=== PATIENT | male | born 1970 | race Caucasian/White ===

== ENCOUNTER 2019-07-29 19:02 | Outpatient (REF) | payer BC, SELFPAY ==
[2019-07-29 18:47] LABS: HCT 46.7 % (40.0-50.0); HGB 16.3 g/dL (13.5-17.5); Mean Corp. HGB Concentration 34.9 g/dL (32.0-36.0); Mean Corpuscular Hemoglobin 30.5 pg (27.0-33.0); Mean Corpuscular Volume 87.3 fL (80-95); Mean Platelet Volume 9.9 fL (8.0-11.0); Platelet Count 270 x1000/uL (130-400); RBC 5.35 m/cumm (4.50-6.00); RBC Distribution Width 12.4 % (11.8-14.1); White Blood Cell Count 5.91 k/cumm (4.4-10.8)
[2019-07-29 19:00] LABS: ALT 35 U/L (16-63); AST 21 U/L (15-37); Albumin 4.6 g/dL (3.4-5.0); Alkaline Phosphatase 61 U/L (46-116); Anion Gap 11.6 mmol/L (3-11); BUN 13 mg/dL (7-18); Bilirubin, Total 0.5 mg/dL (0.2-1.0); CO2 25.4 mmol/L (21.0-32.0); CREATININE 0.71 mg/dL (0.70-1.30); Chloride 105 mmol/L (98-107); Glucose 92 mg/dL (70-100); Hemoglobin A1C 5.3 % (4.5-6.2); Potassium 4.3 mmol/L (3.5-5.1); Sodium 142 mmol/L (136-145); Total Protein 7.5 g/dL (6.4-8.2)
[2019-07-29 19:42] LABS: Calculated LDL 141 mg/dL; Cholesterol 211 mg/dL (50-200); HDL Cholesterol 46 mg/dL (40-60); Triglyceride 122 mg/dL (30-150)
== END 2019-07-29 19:22 ==
LOC: NCHCN 19:02
PROVIDERS: PCP Family Medicine; Visit Provider Family Medicine
DX: R10.32 Left lower quadrant pain (principal); E78.6 Lipoprotein deficiency; E66.9 Obesity, unspecified
CPT/HCPCS: 80053; 80061; 85027; 83036

== ENCOUNTER 2019-07-30 07:46 | Outpatient (CLI) | payer BC, SELFPAY ==
[2019-07-30] MEDS: Omnipaque 350 MG/ML 100 ML BTL IJ (10:42)
[2019-07-30] MEDS: Normal Saline Flush 10 ML SYR IVP (10:46)
--- NOTE | 2019-07-30 10:48 | DI.CT_ITS ---
EXAM: CT ABDOMEN PELVIS W CLINICAL HISTORY: LLQ ABD PAIN, R10.32,H/O KIDNEY STONES, ? DIVERTICULITIS TECHNIQUE: Post IV and oral contrast COMPARISON: RENAL COLIC WO CONTRAST from 09/04/2011 FINDINGS: The lung bases are clear. The liver, gallbladder, spleen, pancreas and adrenals are unremarkable. The right kidney shows 2 cysts near the upper pole. There is a 5 millimeter nonobstructing stone in the mid right kidney. The left kidney shows a 9 millimeter stone near the lower pole. There are 2 a djacent 5 millimeter stones in the mid left kidney and an additional 3 millimeter stone posteriorly i n the upper to mid left kidney. No hydronephrosis, ureteral or bladder calculi are seen. There is m ild enlargement of the prostate which shows calcifications. There is impression upon the base of the bladder and mild diffuse bladder wall thickening. No bladder mass is seen. Contrast is seen in the small and large bowel. There is a normal quantity of stool. The descending and rectosigmoid colon are nearly free of stool. There are a few small scattered diverticula but no evidence of diverticuli tis. There is no bowel wall thickening. The appendix appears normal. The small bowel is unremarkab le. The aorta is normal in diameter. There are no suspicious bony abnormalities. IMPRESSION: Bilateral nonobstructing renal calculi and bilateral simple renal cysts. Enlarged prostate and mild diffuse bladder wall thickening.
== END 2019-07-30 08:06 ==
PROVIDERS: PCP Family Medicine; Visit Provider Family Medicine
DX: R10.32 Left lower quadrant pain (principal); N20.0 Calculus of kidney; N28.1 Cyst of kidney, acquired; N40.0 Benign prostatic hyperplasia without lower urinary tract symptoms; N32.89 Other specified disorders of bladder
CPT/HCPCS: 74177; J3490

== ENCOUNTER 2019-08-22 15:59 | Outpatient (CLI) | payer BC, SELFPAY ==
[2019-08-23 15:16] LABS: PSA, Screening 0.6 ng/mL (0.0-2.5)
== END 2019-08-22 16:19 ==
PROVIDERS: PCP Family Medicine; Visit Provider Nurse Practitioner Gerontology
DX: N40.1 Benign prostatic hyperplasia with lower urinary tract symptoms (principal); Z12.5 Encounter for screening for malignant neoplasm of prostate
CPT/HCPCS: 36415; 84153

== ENCOUNTER 2019-08-23 11:49 | Outpatient (REF) | payer BC, SELFPAY | END 2019-08-23 12:09 | LOC: NCHCN 11:49 | PROVIDERS: PCP Family Medicine; Visit Provider Nurse Practitioner Family | DX: Z00.00 Encounter for general adult medical examination without abnormal findings (principal); L08.9 Local infection of the skin and subcutaneous tissue, unspecified | CPT/HCPCS: 87070; 87205 ==

== ENCOUNTER 2019-10-16 08:26 | Outpatient (CLI) | payer BC, SELFPAY ==
--- NOTE | 2019-10-16 13:00 | DI.RAD_ITS ---
EXAM: XR SHOULDER LT COMPLETE 2+V CLINICAL HISTORY: ROTATOR CUFF TEAR, M75.100, IMPINGEMENT SYNDROME, M75.42. TECHNIQUE: 2D digital imaging was performed. COMPARISON: LEFT SHOULDER COMPLETE from 09/20/2012 FINDINGS: BONES: No acute fracture is present. No bony destructive lesion is seen. JOINTS: No dislocation present. SOFT TISSUE: Normal. IMPRESSION: Unremarkable radiographs of the left shoulder.
== END 2019-10-16 08:46 ==
PROVIDERS: PCP Family Medicine; Visit Provider Orthopaedic Surgery
DX: M25.512 Pain in left shoulder (principal); M75.42 Impingement syndrome of left shoulder
CPT/HCPCS: 73030

== ENCOUNTER 2019-11-04 07:45 | Day surgery (SDC) | payer BC, SELFPAY ==
--- NOTE | 2019-11-04 06:49 | W.COLOREPORT ---
Date of service: 11/04/19 Time of Service: 08:47 Colonoscopy Report Date of procedure: 11/04/19 Pre-op diagnosis general: Colon Cnacer Screening and diarrhea Post-op diagnosis procedure note: other (mild diverticulosis and polyps) Procedure: Colonoscopy with polypectomy by cold forceps Surgeon: Massiel Daniels Anesthesia proc note operative: other (General/ ASA 2/Salima Regan, ALEJANDRO) Estimated blood loss (mL): 5 Pathology: other (Transverse, sigmoid and rectal polyp) Complications: None Disposition: same day Indications: Mr. Doran is a pleasant 49-year-old gentleman who is here today for a screening colonoscopy. He has also noted some changes in bowel habits over the last year. He seems to be getting diarrhea after eating. When this first started it was infrequent but over the last 6 months it has become almost after every meal. He has not been able to find a particular food trigger. He has not had any weight loss, melena or hematochezia. He has no family history of colon cancer. He is also had some left upper quadrant pain underneath the left ribs. He has a history of kidney stones but the pain he is experiencing is different from his kidney stones. Risks, benefits and complications have been reviewed. Complications include but are not limited to bleeding, pain, perforation, missed small lesion/polyp, sore throat, aspiration and adverse reaction to the medications. Questions were entertained and answered to their satisfaction and they wished to proceed. No guarantees were given or implied. Prep: Miralax/Dulcolax Procedure Start Time: 08:47 Procedure End Time: 09:17 Retraction Time: 24 minutes Findings: 3 small polyps mild descending and sigmoid colon diverticulosis Procedure Description: After informed consent was obtained the patient was taken to the procedure room and placed in a left decubitous position. Monitors were applied and a time out was done. The patients name, date of , procedure, allergies to medications and metal in their body was reviewed. The patient was then sedated. Once sedated and comfortable a rectal exam was done. External exam was normal. Internal exam revealed a normal sphincter tone and no palpable masses. The prostate felt smooth. The scope was then introduced and retro-flexed. No internal hemorrhoids, polyps or masses were identified on retro-flexion. The scope was then advanced to the cecum without difficulty. The TI and appendiceal orifice were identified. The prep was good. The scope was then slowly retracted over 24 minutes back into the rectum. Polyps were removed with cold forceps in the trasnverse colon, sigmoid colon and rectum. There was mild diverticulosis of the descending and sigmoid colon. The scope was removed and the patient was woken up and taken back to Same day surgery in stable condition. The patient tolerated the procedure well and there were no immediate complications. Follow up: The patient should follow up in 3-5 years unless they develop changes in bowel habits or other new gastrointestinal complaints.
--- NOTE | 2019-11-04 06:52 | W.PM.DSUDISC ---
Discharge Plan Disposition Patient Disposition: HOME Condition: Good Discharge Details Reason For Visit: SCREENING Attending Provider: Massiel Daniels Primary Care Provider: Kirsty Matthew Home Meds and New Rx's Prescriptions: Continued ibuprofen [Ibuprofen Jr Strength] 100 MG tablet,chewable 600 mg PO Q4H PRN RF: 0 naproxen sodium [Aleve] 220 MG capsule 220 mg PO BID PRN PRNQty: 0 RF: 0 acetaminophen [Tylenol Extra Strength] 500 mg Tablet 1,000 mg PO Q6H PRNRF: 0 Discontinued bisacodyl [Dulcolax (bisacodyl)] 5 mg tablet,delayed release (DR/EC) 5 mg PO ONCE Qty: 4 RF: 0 polyethylene glycol 3350 17 gram powder in packet 255 g PO DAILY Qty: 15 RF: 0 Discharge Instructions Instructions: Diverticulosis (DC), Colorectal Polyps (DC) Additional Instructions: Findings: small polyps Diverticulosis Follow up: 3-5 years Please call if you develop: fevers >101.5 Nausea or Vomiting Abdominal pain that is not transient DAY SURGERY UNIT POST ENDOSCOPY INSTRUCTIONS 1. Because there will be medication in your system for the next 24 hours, you may feel a little sleepy. Your coordination will be affected. Therefore: a. Do not drive or operate dangerous equipment for 24 hours. b. Do not drink alcohol beverages for 24 hours (not even beer). c. Plan to go home and rest for the day. 2. Generally there are no restrictions on your activity after a day or so has gone by, but you may feel a bit fatigued for a few days. 3 After you arrive home you may have a light meal and return to a normal diet as you can tolerate it without feeling sick to your stomach. 4. After surgery, you may feel pain or discomfort. This should be only transient, but if it persists please contact your doctor. 5. If there are any questions regarding the findings of your procedure, please feel free to contact your doctor. 6. If you are unable to contact your doctor with a problem, contact the hospital at [phone]. 7. Continue all your regular medications unless directed otherwise. I understand the above instructions and have no questions. Signature of Patient or Responsible Adult Escort Date/Time Name of Responsible Adult Escort Signature of Nurse Date/Time Activity:: Activity as Tolerated Diet:: High Fiebr Diet Discharge Orders Discharge Orders: Discharge Order (Routine); Ordered 11/04/19 Ordered By: Massiel Daniels DS: Diagnosis Discharge Diagnosis (1) Colorectal polyp detected on colonoscopy: Status: Acute
[2019-11-04 08:20] VITALS: BP 114/80; PULSE 77; RESP 16; TEMP 36.5; O2SAT 97
[2019-11-04] MEDS: Lactated Ringers 1,000 ML 80 ML IV (08:30)
--- NOTE | 2019-11-04 09:02 | BOWEL_PTH ---
PATIENT: Awais Doran LOC: [facility] U#:[id number] AGE/SX: 49/M ROOM: RE11/04/[address]: Massiel Daniels MD : 1970 BED: DIS: 11/04/2019 SPEC #: [id number] RECD: 11/04/19 12:43 STATUS: JAQUELIN REDl #: [id number] EDDY: 11/04/19 09:[address]: Massiel Daniels DEPT: Surgical Specimen RECD BY: Demi Ascencio ENTERED: 11/04/19 12:47 SP TYPE: Bowel OTHR DR: Kirsty Matthew Tissues: 1 - BIOPSY BOWEL 2 - BIOPSY BOWEL 3 - BIOPSY BOWEL Procedures: GROSS AND MICRO LEVEL 4 Comments: [id number]
[2019-11-04 09:59] VITALS: BP 110/60; PULSE 57; RESP 16; TEMP 36.3; O2SAT 97
== END 2019-11-04 10:55 | disposition home or self-care (01) ==
LOC: SUR 07:46
PROVIDERS: PCP Family Medicine; Visit Provider Surgery
PROC: 0DJD8ZZ Inspection of Lower Intestinal Tract, Via Natural or Artificial Opening Endoscopic (ICD-10-PCS; CPT 45378; principal; 2019-11-04 09:00)
DX: Z12.11 Encounter for screening for malignant neoplasm of colon (principal); D12.3 Benign neoplasm of transverse colon; K63.89 Other specified diseases of intestine; K62.1 Rectal polyp; R19.7 Diarrhea, unspecified; K57.30 Diverticulosis of large intestine without perforation or abscess without bleeding; R10.12 Left upper quadrant pain
CPT/HCPCS: 45380; 88305; J2001; J2704

== ENCOUNTER 2020-08-24 00:21 | Outpatient (CLI) | payer BC, SELFPAY ==
--- NOTE | 2020-08-24 07:15 | DI.RAD_ITS ---
EXAM: XR ABDOMEN FLAT PLATE CLINICAL HISTORY: monitoring kidney stones,Z87.442,H/O RENAL CALCULI. TECHNIQUE: 2D digital imaging was performed. COMPARISON: CR ABDOMEN FLAT PLATE from 05/14/2013 FINDINGS: There are 2 radiopaque calculi seen over the lower half of the left kidney. One appears unchanged an d the other is significantly increased in size from 2013. No radiopaque calculi seen over the opposi te-right kidney nor along the course of the ureters. Bowel gas pattern is nonspecific. IMPRESSION: Left-sided nephrolithiasis as described above. No radiopaque calculi seen along the course of the ur eters nor over the region of the urinary bladder. DATA REPOSITORY: RADIATION DOSE DELIVERED:
== END 2020-08-24 00:41 ==
PROVIDERS: PCP Family Medicine; Visit Provider Nurse Practitioner Gerontology
DX: N20.0 Calculus of kidney (principal); Z87.442 Personal history of urinary calculi
CPT/HCPCS: 74018

== ENCOUNTER 2020-08-25 20:53 | Outpatient (REF) | payer BC, SELFPAY ==
[2020-08-28 15:23] LABS: Source: Passed Stone
== END 2020-08-25 21:13 ==
LOC: NCHCN 20:53
PROVIDERS: PCP Family Medicine; Visit Provider Nurse Practitioner Gerontology
DX: N20.0 Calculus of kidney (principal)
CPT/HCPCS: 82365

== ENCOUNTER 2020-12-09 12:49 | Outpatient (REF) | payer BC, SELFPAY ==
[2020-12-09 16:09] LABS: C-Reactive Protein 0.07 mg/dL (0.0-0.3)
[2020-12-09 21:24] LABS: ESR < 2 mm//hr (0-15)
[2020-12-10 14:54] LABS: ANA Interpretation Negative (Negative)
[2020-12-14 08:27] LABS: Cyclic Citrullinated Peptide <2.5 U/mL (<5.0)
== END 2020-12-09 12:50 | disposition home or self-care (01) ==
LOC: NCHCN 12:49
PROVIDERS: PCP Family Medicine; Visit Provider Family Medicine
DX: M25.532 Pain in left wrist (principal)
CPT/HCPCS: 85652; 86200; 86038; 86140

== ENCOUNTER 2021-09-06 02:41 | Outpatient (CLI) | payer BC, SELFPAY ==
--- NOTE | 2021-09-06 07:15 | DI.RAD_ITS ---
Exam(s) XR ABDOMEN FLAT PLATE EXAM: XR ABDOMEN FLAT PLATE CLINICAL HISTORY: monitoring stones,h/o renal calculi,z87.442. TECHNIQUE: 2D digital imaging was performed. COMPARISON: CT CT ABDOMEN PELVIS W from 07/30/[address] ABDOMEN PELVIS W from 07/30/2019 CR XR ABDOMEN FLAT PLATE from 08/24/2020 FINDINGS: Previously described calculi in lower pole region of the left kidney appear unchanged. No calculi se en along the course of the ureters nor in the opposite-right kidney. Bowel gas pattern remains nonspecific in the supine position IMPRESSION: Unchanged appearing 2 calculi in the mid-lower pole and lower pole of the left kidney. The larger of the 2 calculi measures approximately 10 by 9 millimeters. It appears unchanged in size and configur ation. These calculi are also seen on CT scan of 07/30/2019. That CT study also revealed Additional small 3 millimeter calculus in the opposite-right kidney, also nonobstructive. DATA REPOSITORY: RADIATION DOSE DELIVERED:
== END 2021-09-06 03:01 ==
PROVIDERS: PCP Family Medicine; Visit Provider Nurse Practitioner Gerontology
DX: Z87.442 Personal history of urinary calculi (principal)
CPT/HCPCS: 74018

== ENCOUNTER 2021-11-11 13:12 | Outpatient (REF) | payer BC, SELFPAY ==
[2021-11-11 14:58] LABS: Iron 108 ug/dL (65-175); Total Iron Binding Capacity 298 ug/dL (250-450); Transferrin Sat 36 % (20-55)
[2021-11-11 15:24] LABS: Ferritin 227 ng/mL (26-388); Vitamin B12 348 pg/mL (193-986)
[2021-11-11 15:25] LABS: Hemoglobin A1C 5.4 % (<5.7)
== END 2021-11-11 13:13 | disposition home or self-care (01) ==
LOC: LBN 13:12
PROVIDERS: PCP Family Medicine; Visit Provider Family Medicine
DX: K14.6 Glossodynia (principal)
CPT/HCPCS: 82607; 82728; 82746; 83036; 83540; 83550; 84207

== ENCOUNTER 2022-06-24 18:14 | Emergency (ER) | payer BC, SELFPAY ==
[2022-06-24 18:45] VITALS: PULSE 74; RESP 16; TEMP 36.8; O2SAT 98
--- NOTE | 2022-06-24 19:00 | DI.CT_ITS ---
Exam(s) CT RENAL COLIC WO EXAM: CT RENAL COLIC WO CLINICAL HISTORY: L flank/abd pain. TECHNIQUE: Imaging Protocol: Axial computed tomography images with coronal and sagittal reformatted images were created and reviewed. COMPARISON: CT CT ABDOMEN PELVIS W from 07/30/2019 FINDINGS: ABDOMEN: Lung Bases: Normal where visualized. Liver: There is diffuse fatty infiltration of the liver. No measurable mass. Gallbladder and biliary tract: No radiodense calculus or biliary ductal dilation. Pancreas: Normal density, no abnormal calcifications or inflammatory process. Spleen: Normal. Kidneys: Normal size, contour and axis.There is left nephrolithiasis. No ureterolithiasis or hydrone phrosis. There is a stable cyst in the superior pole of the right kidney. Adrenal glands: No mass is seen. Lymph nodes: Within normal limits. Abdominal Aorta: Abdominal portion non-dilated. Mild atherosclerosis. PELVIS: Bladder:The bladder is incompletely distended. There is thickening of the wall of the urinary bladde r diffusely. Bowel: No obstruction or bowel wall thickening. Appendix is unremarkable. Peritoneal cavity: No ascites, collection or mesenteric inflammatory response. No free air. Reproductive organs: Mildly enlarged prostate gland. Bones: Within normal limits. Soft Tissues: Small fat containing umbilical hernia. IMPRESSION: 1. Left nephrolithiasis. No evidence of ureterolithiasis or hydronephrosis. 2. No acute abdominal pelvic process. RADIATION DOSE DELIVERED: 1,158.17mGy.cm Total DLP DATA REPOSITORY: All CT scans at this facility are submitted to the National Radiology Data Registry (NRDR) Dose Index Registry (DIR) with the [employer] (ACR). RADIATION OPTIMIZATION: All CT scans at this facility use at least one of these dose optimization te chniques: automated exposure control; mA and/or kV adjustment per patient size (includes targeted exa ms where dose is matched to clinical indication); or iterative reconstruction.
--- NOTE | 2022-06-24 19:04 | W.ED.GENAD ---
Discharge Plan Disposition Patient Disposition: HOME Condition: Improving Discharge Details Clinical Impression: Left flank pain, Left nephrolithiasis Primary Care Provider: Kirsty Matthew ED Provider: Maikel Carrillo Discharge Instructions Instructions: Kidney Stones (ED), Flank Pain (ED) Additional Instructions: May use the provided oxycodone if needed for severe or breakthrough pain. Return develop a fever, increasing pain, vomiting, bloating, or any other acute concerns Home to rest this evening. May continue small, frequent sips of fluids to maintain good hydration. Medical Decision Making This is a 52-year-old male who presents from home. He has a history of recurrent renal colic. He states the onset of back pain that became left flank pain and now left lower quadrant pain over hours since approximately 11 AM today. Some increased urgency of urination. No fever or vomiting. He arrives stable with exam but notes left flank and left lower quadrant tenderness. Most consistent with ureteral colic. Patient IV access established, labs obtained. He is given fluids, parenteral analgesia, and referred for CT images. Labs noted normal CBC, comprehensive panel shows normal electrolytes with a BUN of 15 creatinine of 0.9. Unremarkable LFTs. Trace blood present in urine. There is evidence of a nonobstructive left nephrolithiasis. Multilevel thoracolumbar degenerative disc disease noted. Other nonacute findings noted. Patient improved with analgesia. Most likely this is a small ureteral calculus that has passed. Discussed with him that it may be an atypical presentation of degenerative disease of the spine. He is stable and improving, appropriate for outpatient management. He is consented for the use of a small number of narcotic analgesics if needed for severe or breakthrough pain. He understands indications to seek reevaluation. [facility] General Mode of arrival: ambulatory. Date/Time Provider Initiated Documentation: 06/24/22 18:53. Limitations to Documentation: no limitations. Information obtained by: patient. History of Present Illness 52 year old M presents to the emergency department with the chief complaint of left flank pain, described as moderate and similar to prior episodes, and is localized to the back, abdomen and left. Patient reports radiation to back and abdomen. Patient started experiencing this hour(s) and it has been intermittent. No relieving factors improve symptom(s), No exacerbating factors reported . Patient notes denies fever/chills, loss of appetite and nausea/vomiting. Patient did receive the following treatments prior to arrival, NSAID Related Data Allergies Allergy/AdvReac Type Severity Reaction Status Date / Time No Known Allergies Allergy Unverified 06/24/22 19:32 General Stated Complaint: FlankPain TRISH: 3 Review of Systems Narrative: Last had ibuprofen at noon. No other recent illness. No fever or vomiting. 6 systems were reviewed and otherwise negative PFSH All Active Problems (Updated 06/24/22 @ 20:18 by Maikel Carrillo MD) Left flank pain (Acute) Left nephrolithiasis (Acute) BPH (benign prostatic hyperplasia) (Acute) Calculus of kidney (Acute) Colorectal polyp detected on colonoscopy (Acute) LLQ abdominal pain (Acute) Medical History Depression Diverticulosis Left arm pain Low HDL (under 40) Obesity Pain in left wrist Pain, joint, shoulder, left Restless leg syndrome Sensorineural hearing loss, bilateral (08/12/13) Sleep apnea Testicular atrophy Tinnitus, bilateral Surgical History History of bunionectomy L foot History of nasal surgery fixed deviated septum, uvula removed History of tonsillectomy Hx of lithotripsy S/P colonoscopy (~11/04/19) 2020 - sessile serrated adenoma Status post myringotomy with insertion of tube Family History Other Cancer Social History Smoking/Tobacco Use Status: Never Smoking risk assessment performed?: Yes Alcohol Intake: never Drug use: Never Substance use type: does not use Do you feel safe at home: Yes Do you feel safe in your relationship?: Yes Exam Narrative Exam Narrative: GEN: awake, alert, oriented 3. Pleasant, well groomed, interactive. HEAD: Normocephalic, atraumatic ENT: Mucous membranes moist, oropharynx unremarkable, External ear exam unremarkable EYES: PERRL, EOMI NECK: Full ROM, no PENG, no menigismus CHEST/RESP: Nontender, clear to auscultation bilateral, no wheeze/rhonchi/rales CARDIOVASCULAR: RRR, no murmur, rub paco. 2+ Rad pulse bilateral ABDOMEN: Soft, left flank and left lower quadrant/mid abdomen tender to palpation, no mass. +Bowel sounds EXT: Full ROM, no edema, no rash Neuro: Grossly normal neurologic exam, conversant, interactive. Psych: Speech fluent, thoughts congruent, affect normal Course Vital Signs Vital signs: Vital Signs Temperature 36.8 C 06/24/22 18:45 Pulse 74 06/24/22 18:45 Respiratory Rate 16 06/24/22 18:45 Pulse Oximetry 98 06/24/22 18:45 Temperature 36.8 C 06/24/22 18:45 Pulse 74 06/24/22 18:45 Respiratory Rate 16 06/24/22 18:45 Blood Pressure Position Sitting 06/24/22 18:45 Pulse Oximetry 98 06/24/22 18:45 Oxygen Delivery Method Room Air 06/24/22 18:45 Oxygen Flow Rate 0 06/24/22 18:45 Pain Level 8 06/24/22 18:45
[2022-06-24] MEDS: Ketorolac 30 MG/ML VIAL 15 MG IVP (19:34)
[2022-06-24] MEDS: Normal Saline 1,000 ML 150 ML IV (19:35)
[2022-06-24 19:38] LABS: Bilirubin Negative (Negative); Blood Trace-intact (Negative); Clarity Clear (Clear); Glucose Negative (Negative); Ketones Negative (Negative); Leukocyte Esterase Negative (Negative); Nitrite Negative (Negative); Specific Gravity 1.025 (1.005-1.025); Urobilinogen 0.2 EU/dL (Up TO 0.2); pH 6.5 (5-8)
[2022-06-24 19:52] LABS: Abs Immature Grans 0.02 10^3/uL (0.0-0.06); Absolute Basophil Count 0.04 10^3/uL (0.0-0.2); Absolute Eosinophil Count 0.14 10^3/uL (0.0-0.7); Absolute Lymphocyte Count 2.65 10^3/uL (1.2-3.4); Absolute Monocyte Count 0.63 10^3/uL (0.1-0.8); Absolute Neutrophil Count 3.91 10^3/uL (1.2-6.7); Basophils % 0.5; Eosinophils % 1.9; HCT 45.9 % (40.0-50.0); Immature Grans % 0.3; Lymphocytes % 35.9; MCH 30.2 pg (27.0-33.0); MCHC 34.9 % (32.0-36.0); MCV 87 fL (80-95); Monocytes % 8.5; Neutrophils % 52.9; Platelet Count 213 10^3/uL (130-400); RBC 5.29 10^6/uL (4.36-5.78); RDW 11.9 % (11.8-14.1); RDW-SD 38.2 fL; WBC 7.39 10^3/uL (4.4-10.8)
[2022-06-24 20:00] LABS: Bacteria Negative HPF (Negative); C & S Indicated? No; Crystals Negative HPF (Negative); Epithelial Cells Negative HPF (Negative); Mucus Trace (Negative)
[2022-06-24 20:07] LABS: ALT 40 U/L (16-63); AST 19 U/L (15-37); Albumin 4.4 g/dL (3.4-5.0); Alkaline Phosphatase 69 U/L (46-116); Anion Gap 6.1 mmol/L (3-11); BUN 15 mg/dL (7-18); Bilirubin, Total 0.4 mg/dL (0.2-1.0); CO2 27.9 mmol/L (21.0-32.0); CREATININE 0.9 mg/dL (0.70-1.30); Calcium 8.8 mg/dL (8.5-10.1); Chloride 104 mmol/L (98-107); Estimated GFR 102.76 (mL/min/1.73m2); Glucose 91 mg/dL (74-106); Potassium 3.7 mmol/L (3.5-5.1); Sodium 138 mmol/L (136-145); Total Protein 7.4 g/dL (6.4-8.2)
--- NOTE | 2022-06-24 20:07 | DI.VRAD_ITS ---
PROCEDURE INFORMATION: Exam: CT Abdomen And Pelvis Without Contrast Exam date and time: 06/24/2022 7:20 PM Age: 52 years old Clinical indication: Other: L flank/ abd pain TECHNIQUE: Imaging protocol: Computed tomography of the abdomen and pelvis without contrast. COMPARISON: CT ABDOMEN PELVIS W 07/30/2019 10:45 AM FINDINGS: Liver: Hepatic steatosis. Gallbladder and bile ducts: Normal Pancreas: Normal. Spleen: Normal. Adrenal glands: Normal. No mass. Kidneys and ureters: Nonobstructive left nephrolithiasis. Simple right upper pole renal cyst, for which no further evaluation necessary. Stomach and bowel: Colonic diverticulosis. Appendix: Appendix normal. Intraperitoneal space: Unremarkable. No free air. No significant fluid collection. Vasculature: Unremarkable. No abdominal aortic aneurysm. Lymph nodes: Unremarkable. No enlarged lymph nodes. Urinary bladder: Unremarkable as visualized. Reproductive: Prostate gland is enlarged, measuring 4.6 cm in AP diameter. Bones/joints: Multilevel thoracolumbar spine degenerative disc space narrowing and osteophyte formation. Degenerative changes of the hips and sacroiliac joints. Soft tissues: Small fat containing umbilical hernia. IMPRESSION: No acute abdominal or pelvic abnormality. Dictated and Authenticated by: Lazaro Tanner MD. Ordering:DIRK Ko MD
[2022-06-24] MEDS: HYDROmorphone 2 MG/ML SYR 0.5 MG IVP (20:08)
== END 2022-06-24 20:49 | disposition home or self-care (01) ==
PROVIDERS: Emergency Provider Emergency Medicine; PCP Family Medicine
DX: N20.0 Calculus of kidney (principal); M47.815 Spondylosis without myelopathy or radiculopathy, thoracolumbar region
CPT/HCPCS: 80053; 96361; 96374; 96375; 99284; 74176; 81003; 81015; 85025; J1170; J1885

== ENCOUNTER 2022-09-16 00:04 | Outpatient (CLI) | payer BC, SELFPAY ==
--- NOTE | 2022-09-16 07:15 | DI.RAD_ITS ---
Exam(s) XR ABDOMEN FLAT PLATE EXAM: 2D digital imaging was performed. CLINICAL HISTORY: monitoring (L) renal stones,Z87.442. COMPARISON: CT CT RENAL COLIC WO from 06/24/2022 TECHNIQUE: Supine views of the abdomen performed. FINDINGS: BOWEL GAS PATTERN: Nondistended. CALCIFICATIONS: Stable appearance of tiny stones mid pole and mid to lower pole. Two 7 millimeter ad jacent stones at the lower pole also stable OSSEOUS STRUCTURES: Normal for age. OTHER FINDINGS: None. IMPRESSION: 1. Nonobstructive bowel gas pattern. 2. Stable left nephrolithiasis. DATA REPOSITORY: RADIATION DOSE DELIVERED:
== END 2022-09-16 00:24 ==
LOC: DI 00:05
PROVIDERS: PCP Family Medicine; Visit Provider Nurse Practitioner Gerontology
DX: N20.0 Calculus of kidney (principal); Z87.442 Personal history of urinary calculi
CPT/HCPCS: 74018

== ENCOUNTER 2022-09-21 12:24 | Outpatient (REF) | payer BC, SELFPAY ==
[2022-09-21 22:56] LABS: PSA, Screening 0.8 ng/mL (<=3.5)
== END 2022-09-21 12:25 | disposition home or self-care (01) ==
LOC: LBN 12:24
PROVIDERS: PCP Family Medicine; Visit Provider Nurse Practitioner Gerontology
DX: N40.0 Benign prostatic hyperplasia without lower urinary tract symptoms (principal); Z12.5 Encounter for screening for malignant neoplasm of prostate
CPT/HCPCS: 84153

== ENCOUNTER 2023-08-28 07:29 | Day surgery (SDC) | payer BC, SELFPAY ==
--- NOTE | 2023-08-27 15:34 | ANES.PREOP_ITS ---
General Info Date of Service Date Performed: 08/28/23 Height: 6 ft 2 in Weight: 117.48 kg Body Mass Index (BMI): 33.2 Surgical Procedure: Operation Date: 08/28/23 08:50 Proposed Procedure Side Surgeon p Colonoscopy Yao Sy MD Meds Allergies and Home Medications Allergies Allergy/AdvReac Type Severity Reaction Status Date / Time No Known Allergies Allergy Unverified 08/28/23 07:40 Home Medication Medication Instructions Recorded bisacodyl 5 mg tablet,delayed 5 mg PO ONCE colonscopy bowel prep 08/16/23 release (Dulcolax (bisacodyl)) #4 tabs polyethylene glycol 3350 17 238 g PO ONCE colonoscopy prep 08/16/23 gram/dose oral powder #238 grams Current Visit Medications: Current Medications Generic Name Dose Route Start Last Admin Trade Name Freq PRN Reason Stop Dose Admin Ringer's Solution 1,000 mls @ 80 mls/hr 08/28/23 06:00 IV 09/24/23 23:59 INFUSION JIMENA IV Miscellaneous Supplies 1 each 08/28/23 06:00 Iv Access IV 09/24/23 23:59 DIRECTED JIMENA Sodium Chloride 0 ml 08/28/23 06:00 Normal Saline Flush 10 Ml Syr IV 09/24/23 23:59 PRN PRN Sodium Chloride 0 ml 08/28/23 06:00 Normal Saline 10 Ml Vial IJ 09/24/23 23:59 DIRECTED PRN Sterile Water 0 ml 08/28/23 06:00 Water,Injection,Sterile 10 Ml Vial IJ 09/24/23 23:59 DIRECTED PRN PFSH Active Problems Active Problems: Problem Status Onset Code Sessile serrated polyp of colon ~11/04/19 D12.6 BPH (benign prostatic hyperplasia) N40.0 Calculus of kidney N20.0 Colorectal polyp detected on colonoscopy K63.5 LLQ abdominal pain R10.32 Medical History Medical History Burning mouth syndrome Left arm pain Pain in left wrist Diverticulosis Sensorineural hearing loss, bilateral (08/12/13) Testicular atrophy Restless leg syndrome Sleep apnea Low HDL (under 40) Pain, joint, shoulder, left Tinnitus, bilateral Obesity Depression Surgical History Surgical History S/P colonoscopy (~11/04/19) 2019 - sessile serrated adenoma Hx of lithotripsy History of bunionectomy L foot Status post myringotomy with insertion of tube History of tonsillectomy History of nasal surgery fixed deviated septum, uvula removed Tobacco Smoking/Tobacco Use Status: Never Alcohol Alcohol Intake: never Substance Use Substance use: Never Substance use type: does not use Vital Signs and Lab Results Vital Signs Most Recent Vital Signs in EMR: Temp Pulse Resp BP Pulse Ox 37.1 C 72 16 134/90 96 08/28/23 07:42 08/28/23 07:42 08/28/23 07:42 08/28/23 07:42 08/28/23 07:42 Lab Results Blood Type / Crossmatch: No Data to Display Complete Blood Count: No Data to Display Complete Metabolic Panel: No Data to Display Liver Function Panel: 2 No Data to Display Coagulation Panel: No Data to Display Cardiac Panel: No Data to Display Arterial Blood Gas: No Data to Display Venous Blood Gas: No Data to Display Pancreas Panel: No Data to Display Thyroid Panel: No Data to Display Infectious Disease: No Data to Display Blood Cultures: No Data to Display Toxicology Panel: No Data to Display Anesthesia Assessment and Plan Anesthesia History Personal History: No History of Anesthesia Complications Family History: No Family History of Anesthesia Complications Exercise Tolerance Exercise Tolerance: Metabolic Equivalents>4 Cardiac & Pulmonary Exam Cardiac Exam: Normal S1/S2 Heart Sounds Pulmonary Exam: Clear Bilateral Breath Sounds Implantable Cardiac Device Does patient have a Pacemaker or an ICD?: No Airway Exam Known Difficult Airway: No Mallampati Class: 3 Mouth Opening: Normal (> 3cm) Thyromental Distance: Less than 3 cm Neck Range of Motion: Full ROM Neck Circumference: Normal Teeth Condition: Normal Dentition ASA Classification ASA Score: ASA 2 Emergency Case?: No NPO Status NPO Status: NPO Clears >2 hours, Solids >8 hours Anesthesia Plan Resuscitation Status: Full Code Anesthesia Technique: General Anesthesia Airway Planned: Natural Airway Monitors Used: Standard Monitors Preoperative Comments:: 53 yo male for colo. Sig PMHx: CYNTHIA, RLS, never smoker Previous Anes: - colo, prop, natural airway, no issues.
--- NOTE | 2023-08-27 18:16 | W.PM.DSUDISC ---
Date of service: 08/28/23 Time of Service: 09:22 Discharge Plan Disposition Patient Disposition: Home Condition: Good Discharge Details Reason For Visit: screening colonoscopy Attending Provider: Yao Sy Primary Care Provider: Kirsty Matthew Home Meds and New Rx's Prescriptions: Continued polyethylene glycol 3350 17 gram/dose powder 238 g PO ONCE Qty: 238 0RF Rx Instructions: take per colonoscopy instructions bisacodyl [Dulcolax (bisacodyl)] 5 mg tablet,delayed release (DR/EC) 5 mg PO ONCE Qty: 4 0RF Rx Instructions: take per colonoscopy instructions Discharge Instructions Instructions: Diverticulosis (GEN), Diverticulosis Diet (GEN) Additional Instructions: Awais, we are able to complete your colonoscopy today without any difficulty. I did not see any signs of new tumors or polyps. Incidentally, you do have just a tiny bit of diverticulosis. Diverticula are weak spots in the colon wall that typically accumulate with age. Have attached some general information here regarding diverticulosis and management strategies. Based on your previous sessile serrated adenoma, I recommend a follow-up colonoscopy in 5 years. 1. If tolerated, consume a soft, low fiber diet for 1-2 days. 2[address] Do not drive, drink alcohol, operate machinery, make critical decisions, or do activities that require coordination or balance for 24 hours. 3. Because air was put into your colon during the procedure, expelling air from your rectum (passing gas or farting) is normal. 4. You may not have a bowel movement for 1-3 days because of the colonoscopy prep. This is normal. 5. Go directly to the emergency room if you notice any of the following: Develop chills (warm to touch), or if you have a thermometer and your temperature is above 101 Difficulty breathing or difficultly swallowing Persistent vomiting Severe abdominal pain, other than gas cramps Severe chest pain Black, tarry stools Any bleeding ? exceeding one tablespoon 6. Call your physician if the site where your intravenous was started becomes red, swollen, painful, and warm to touch. 7. Your physician has reviewed your pre-procedure medications. Please continue to take those medications as previously ordered. You will be given specific information/education regarding any changes to your medications before leaving. Activity:: Activity as Tolerated Diet:: As Tolerated Discharge Orders Discharge Orders: Discharge Order (Routine); Ordered 08/27/23 Ordered By: Yao Sy DS: Diagnosis Discharge Diagnosis (1) Sessile serrated polyp of colon: Status: Acute Asessment and Plan: Negative colonoscopy today; based on previous serrated adenoma, recommend follow-up in 5 years
--- NOTE | 2023-08-27 18:18 | COLE_ITS ---
Date of service: 08/28/23 Time of Service: : Colonoscopy Report Date of procedure: 08/28/23 Pre-op diagnosis general: screening colonoscopy Post-op diagnosis procedure note: other (Negative screening colonoscopy) Procedure: Colonoscopy Surgeon: Yao Sy Anesthesia Type: General:No Airway Estimated blood loss (mL): 0 Pathology: none sent Complications: None Disposition: same day Indications: Awais is a 53 year old man with a history of sessile serrated adenoma who needs another screening colonoscopy Prep: Miralax/Dulcolax Procedure Start Time: 08:46 Procedure End Time: 09:02 Retraction Time: 9 Findings: Rare diverticulosis Procedure Description: After the induction of monitored anesthetic care, and with the patient in left lateral decubitus position, I began by performing an external anorectal exam.? Perineum and skin were normal, as was the anal verge.? There was no evidence of external hemorrhoids.? Next, I performed a digital rectal exam.? I did not appreciate any abnormal findings.? Next, I advanced a colonoscope into the rectal vault.? I performed retroflexion.? This appeared normal.? Using insufflation, I then advanced the colonoscope beyond the rectal folds and into the sigmoid colon before advancing towards the cecum.? The quality of the prep was excellent.? The scope was noted to be in the cecum by identification of the ileocecal valve and appendiceal orifice.? I then began withdrawing the c olonoscope using repeated irrigation as necessary for full evaluation of the colonic mucosa. There were just a few diverticula in the sigmoid colon. ?Once the scope was withdrawn to the level of the rectum, great care was taken to examine portions of the rectal folds.? I did not see any signs of tumors, polyps, or anything else worrisome finally, the scope was withdrawn and the patient was brought to the same-day surgery recovery unit as the anesthetic wore off. ?The findings and instructions were shared with the patient prior to discharge. C[place]a Bowel Prep Caneadea Bowel Prep Right Colon: 3 Left Colon: 3 Transverse Colon: 3 Total Score: 9
[2023-08-28 07:42] VITALS: BP 134/90; PULSE 72; RESP 16; TEMP 37.1; O2SAT 96
[2023-08-28] MEDS: Lactated Ringers 1,000 ML 80 ML IV (07:55)
[2023-08-28 07:58] VITALS: BMI 33.2
[2023-08-28 09:10] VITALS: BP 116/88; PULSE 78; RESP 16; TEMP 36.5; O2SAT 95
--- NOTE | 2023-08-28 09:18 | W.ANESPOSTOP ---
Postoperative Evaluation Date, Time and Location Date Performed: 08/28/23 Time Performed: :18 Patient Location: Day Surgery Unit Vital Signs Most Recent Imported Vital Signs: Most Recent Vital Signs Temp Pulse Resp BP Pulse Ox 36.5 C 78 16 116/88 95 08/28/23 09:10 08/28/23 09:10 08/28/23 09:10 08/28/23 09:10 08/28/23 09:10 Pain Score Most Recent Pain Score: Most Recent Pain Score Pain Level 0 08/28/23 09:10 Assessment Mental Status: Awake (Alert & Oriented to Patient Baseline) Airway and Respiratory Function: Patent airway with normal (patient baseline) respiratory exam Cardiovascular Function: Hemodynamically Stable Hydration Status: Adequately Hydrated Nausea & Vomiting: No Nausea or Vomiting Pain: Pt. Denies Any Pain Peripheral Nerve Block: Patient did not receive a nerve block
[2023-08-28 09:25] VITALS: BP 117/80; PULSE 72; RESP 16; TEMP 36.4; O2SAT 95
[2023-08-28 09:45] VITALS: BP 123/81; PULSE 68; RESP 16; O2SAT 94
== END 2023-08-28 09:58 | disposition home or self-care (01) ==
LOC: SUR 07:30
PROVIDERS: PCP Family Medicine; Visit Provider Surgery
PROC: 0DJD8ZZ Inspection of Lower Intestinal Tract, Via Natural or Artificial Opening Endoscopic (ICD-10-PCS; CPT 45378; principal; 2023-08-28 08:45)
DX: Z12.11 Encounter for screening for malignant neoplasm of colon (principal); Z86.010 Personal history of colon polyps
CPT/HCPCS: 45378

== ENCOUNTER → 2023-09-20 01:05 | Outpatient (CLI) | payer BC, SELFPAY ==
--- NOTE | 2023-09-20 07:45 | DI.RAD_ITS ---
Exam(s) XR ABDOMEN FLAT PLATE EXAM: 2D digital imaging was performed. CLINICAL HISTORY: monitoring left renal calculi,CALCULUS OF KIDNEY,N20.0. COMPARISON: No exams were available for comparison TECHNIQUE: Supine views of the abdomen was performed. Two images were obtained. FINDINGS: LUNG BASES: Not included on this examination. BOWEL GAS PATTERN: Nondistended. FREE AIR: None. CALCIFICATIONS: There again seen for collections of stones in the left kidney which appears stable. No other urinary tract calculi are identified. The largest stone measures 1.1 cm in length. OSSEOUS STRUCTURES: Normal for age. OTHER FINDINGS: None. IMPRESSION: Stable left nephrolithiasis. DATA REPOSITORY: RADIATION DOSE DELIVERED:
== END ==
PROVIDERS: PCP Family Medicine; Visit Provider Nurse Practitioner Gerontology
DX: N20.0 Calculus of kidney (principal)
CPT/HCPCS: 74018

== ENCOUNTER 2024-07-30 01:53 | Outpatient (CLI) | payer BC, SELFPAY ==
--- NOTE | 2024-07-30 08:04 | DI.RAD_ITS ---
Exam(s) XR FOOT LT COMPLETE EXAM: XR FOOT LT COMPLETE CLINICAL HISTORY: Left foot/toe pain,m79.672. TECHNIQUE: 2D digital imaging was performed. Three views. COMPARISON: CR XR FOOT RT COMPLETE from 07/30/2024 FINDINGS: BONES: No acute fracture is present. No bony destructive lesion is seen. Accessory navicular. Small spur at the dorsal aspect of the talus. JOINTS: No dislocation present. Mild narrowing at the 1st MTP joint. Mild to moderate periarticular spurring. Degenerative changes between the bases of the 3rd and 4th metatarsals. Plantar arch is ma intained. SOFT TISSUE: Normal. IMPRESSION: Mild degenerative changes. DATA REPOSITORY: RADIATION DOSE DELIVERED:
--- NOTE | 2024-07-30 08:05 | DI.RAD_ITS ---
Exam(s) XR FOOT RT COMPLETE EXAM: XR FOOT RT COMPLETE CLINICAL HISTORY: Right foot/toe pain,M79.671. TECHNIQUE: 2D digital imaging was performed. Three views. COMPARISON: No exams were available for comparison FINDINGS: BONES: No acute fracture is present. No bony destructive lesion is seen. JOINTS: No dislocation present. Mild degenerative changes at 1st MTP joint. Mild periarticular spur ring. Mild degenerative changes interphalangeal joint of the great toe. Mild spurring at the bases of the metatarsals. Plantar arch is maintained. SOFT TISSUE: Normal. IMPRESSION: Mild degenerative changes. DATA REPOSITORY: RADIATION DOSE DELIVERED:
== END 2024-07-30 02:13 ==
LOC: DI 01:53
PROVIDERS: PCP Family Medicine; Visit Provider Podiatrist
DX: M79.672 Pain in left foot (principal); M79.671 Pain in right foot
CPT/HCPCS: 73630